=== PATIENT | female | born 1970 | race Caucasian/White ===

== ENCOUNTER → 2016-04-16 | Outpatient (CLI) | payer MEDICAID ==
--- NOTE | 2016-04-16 19:48 | DX ---
AP Standing and Lateral Scoliosis Series History: Scoliosis. Comparison: MRI lumbar spine September 11, 2015. Findings: There is 11 degree dextroscoliosis of the thoracic spine measured from the superior endpla te of T3 through the inferior endplate of T9. There is 38 degree levoscoliosis of the thoracolumbar spine measured from the superior endplate of T10 through the inferior endplate of L4. A jemima line i nferiorly from C7 is 13.3 cm to the right of the midline of the sacrum and 12.7 cm anterior to the po sterosuperior margin of S1. There is no significant leg-length discrepancy. Linear basilar scarring /atelectasis is present in the right lower lobe. Moderate stool is present in the colon. Impressions 1. S-shaped scoliosis of the thoracolumbar spine, with prominent levoscoliosis of the thoracolumbar junction. 2. Significant coronal and sagittal imbalance, as above. 3. Additional findings, as above.
== END ==
LOC: FIMAGING 12:31
PROVIDERS: ATTEND Family Medicine
DX: M41.85 Other forms of scoliosis, thoracolumbar region (principal); J98.4 Other disorders of lung

== ENCOUNTER 2016-11-26 14:21 | Emergency (ER) | payer MEDICAID ==
[2016-11-26 14:30] VITALS: RESP 16
--- NOTE | 2016-11-26 14:52 | EDPHY ---
H & P Stated Complaint: bilateral leg swelling, starting 3 days ago. Time Seen by Provider: 11/26/16 14:52 HPI/ROS: HPI: This is a 46-year-old female who presents with Chief Complaint: bilateral leg swelling, starting 3 days ago. Location: Bilateral lower legs Quality: Swelling Duration: 3 days Signs and Symptoms:+ redness, no shortness of breath, no pruritus, no calf pain , no injury, + warmth, no orthopnea, no chest pain Timing: Gradual onset Severity: [id number] Context: Patient complains of bilateral lower leg swelling and redness. She is currently wearing a left ankle bracelet since October 10. Several days after wearing on her right ankle she noticed right lower extremity swelling and redness. The ankle bracelet has since moved to her left ankle and now she complains of left lower extremity swelling and redness. She also notes right knee swelling. She denies any injury or trauma. She is ambulatory without deficits. She is currently under pain management. Modifying Factors: No [id number] medications have been tried. Comment: ROS: Constitutional: No fever, no chills, no weight loss Eyes: No blurred vision Respiratory: No shortness of breath, no cough Cardiovascular: No chest pain Gastrointestinal: No nausea, no vomiting no diarrhea Genitourinary: No dysuria Extremities: No myalgias Neurologic: No weakness, no numbness Skin: No rashes Hematologic: No bruising, no bleeding Source: Patient Exam Limitations: No limitations - Personal History LMP (Females 10-55): Post Menopausal Current Tetanus/Diphtheria Vaccine: Yes Current Tetanus Diphtheria and Acellular Pertussis (TDAP): Yes - Medical/Surgical History Hx Asthma: Yes Hx Chronic Respiratory Disease: No Hx Diabetes: No Hx Cardiac Disease: No Hx Renal Disease: No Hx Cirrhosis: No Hx Alcoholism: No Hx HIV/AIDS: No Hx Splenectomy or Spleen Trauma: No Other PMH: left knee surgery, 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 Tympanic membranes clear. Oropharynx clear, no exudate and moist pink mucosa. Airway patent. No lymphadenopathy. No meningismus. Cardiovascular: Normal S1/S2, regular rate, regular rhythm, without murmur rub or gallop. PULMONARY/CHEST: Symmetrical and nontender. Clear to auscultation bilaterally. Good air movement. No accessory muscle usage. ABDOMEN: Soft, nondistended, nontender, no rebound, no guarding, no peritoneal signs, no masses or organomegaly. No CVAT. EXTREMITIES: 2/2 pedal pulses, no deformities, no clubbing, no cyanosis. No calf tenderness. Mild erythema bilateral lower legs sparing her ankles and feet with trace bilateral pitting edema. Left ankle bracelet noted. Right knee mild effusion; no joint line tenderness; extension 180; flexion 120, stable to varus and valgus exam. Left knee completely normal exam. Bilateral ankle with full range of motion plantar flexion and dorsiflexion. NEUROLOGICAL: no focal neuro deficits. GCS 15. SKIN: Warm and dry, no erythema. no rash. Good capillary refill. Constitutional: Initial Vital Signs Heart Rate 83 11/26/16 14:27 Respiratory Rate 16 11/26/16 14:27 Blood Pressure 129/74 H 11/26/16 14:27 O2 Sat (%) 96 11/26/16 14:27 O2 Delivery Mode Room Air O2 (L/minute) 36.4 Allergies/Adverse Reactions: aspirin [Aspirin] Allergy (Verified 07/21/15 13:28) Penicillins Allergy (Verified 07/21/15 13:28) Home Medications: Medication Instructions Recorded FLUoxetine [Prozac] 40 mg PO DAILY 12/25/10 Gabapentin [Neurontin] 900 mg PO DAILY 12/25/10 oxyCODONE/APAP 5/325 [Percocet] 1 - 2 tab PO Q4-6PRN PRN #19 tab 11/13/11 Flexeril 07/21/15 Methadone HCl 07/21/15 predniSONE 40 mg PO DAILY #8 tab 07/21/15 Medical Decision Making - Diagnostics Imaging Results: Imaging Impressions Extremity Venous Study 11/26/16 14:56 Impression: 1. No evidence of DVT both lower extremities. 2. Bilateral popliteal cysts right side larger than left. Findings discussed with Brandi Anthony PAC at 15:37 hour, 11/26/2016. Knee X-Ray 11/26/16 14:56 Impression: Negative right knee radiographs. ED Course/Re-evaluation: Right knee x-ray and bilateral lower extremity ultrasound ordered No signs of hypoxia/congestive failure/respiratory failure 1540: Called by radiologist and ultrasound shows no bilateral DVTs; does show bilateral Juarez cysts, right larger than left. Right measuring 4.8 cm and left measuring 3.1 cm. Right knee x-ray my read shows no significant degenerative changes Advised rest, elevate, compression stockings, NSAIDs. Follow up with primary care provider and/or orthopedics if symptoms persist or worsen Differential Diagnosis: Leg swelling including but not limited to hypoalbuminemia, congestive heart failure, cor pulmonale, chronic venous stasis and DVT. Departure - Departure Disposition: Home, Routine, Self-Care Clinical Impression: Dependent edema Juarez's cyst of knee Qualifiers: Laterality: unspecified laterality Qualified Code(s): M71.20 - Synovial cyst of popliteal space [Juarez], unspecified knee Condition: Good Instructions: Bakers Cyst (ED), Leg Edema (ED) Additional Instructions: Rest affected extremity. Elevate legs and wear compression stockings to decrease swelling. Referrals: Ifeoma Branch MD [Primary Care Provider] - As per Instructions Augustin Hoskins MD [Medical Doctor] - Follow Up Only If Needed
[2016-11-26 16:12] VITALS: BP 138/92; PULSE 77; TEMP 98.1; O2SAT 97
== END 2016-11-26 16:15 | disposition home or self-care (01) ==
DX: M71.21 Synovial cyst of popliteal space [Baker], right knee (principal); M71.22 Synovial cyst of popliteal space [Baker], left knee; R60.0 Localized edema; J45.909 Unspecified asthma, uncomplicated; F17.200 Nicotine dependence, unspecified, uncomplicated

== ENCOUNTER 2016-12-25 14:58 | Emergency (ER) | payer MEDICAID ==
--- NOTE | 2016-12-25 15:47 | EDPHY ---
H & P Time Seen by Provider: 12/25/16 15:45 HPI/ROS: Chief complaint. Back pain HPI. 46-year-old female with 1 day history of left low back and left leg pain. It began yesterday. She denies injury. She normally walks with a cane due to chronic pain but it is hard to walk. She denies any trauma or unusual activity. She has had chronic back pain but not specifically similar symptoms before. She has no leg weakness. No bowel or bladder symptoms. No previous back surgery. No fever. No abdominal pain. ROS Constitutional. no fever/chills, no weakness Eyes. no problems with vision ENT. no sore throat, no nasal drainage Cardiovascular. no chest pain Respiratory. no shortness of breath, no cough Abdominal. no abdominal pain, no nausea/vomiting, no diarrhea . no problems urinating MS. left low back pain radiating to left leg Skin. no rash Lymph. no swollen glands Neuro. Difficulty walking secondary to pain Past Medical/Surgical History: Past medical history significant for brain injury, left knee surgery, chronic pain, cholecystectomy, scoliosis Social History: , daily smoker, no alcohol Smoking Status: Heavy smoker Physical Exam: General Appearance: Alert well-developed female mild distress vital signs significant for initial heart rate 116 Eyes: Pupils equal and round no pallor or injection. ENT, Mouth: Mucous membranes are moist. Respiratory: There are no retractions, lungs are clear to auscultation. Cardiovascular: Regular rate and rhythm. Gastrointestinal: Abdomen is soft and nontender, no masses, bowel sounds normal. Neurological: Awake and alert, sensory and motor exams grossly normal. Reflexes are symmetrical. Straight leg raising normal on both sides to 30 degrees. Patient tells me it feels better raising her left leg. Great toe strength is normal. Sensation is normal. Skin: Warm and dry, no rashes. Musculoskeletal: Neck is supple nontender. Tenderness to the left side of L2- 3 area. No tenderness over the lumbar spine. Extremities symmetrical, full range of motion. Psychiatric: Patient is oriented X 3, there is no agitation. Constitutional: Initial Vital Signs Temperature (C) 36.6 C 12/25/16 14:59 Heart Rate 116 H 12/25/16 14:59 Respiratory Rate 18 12/25/16 14:59 Blood Pressure 121/81 H 12/25/16 14:59 O2 Sat (%) 94 12/25/16 14:59 O2 Delivery Mode Room Air Allergies/Adverse Reactions: aspirin [Aspirin] Allergy (Verified 07/21/15 13:28) Penicillins Allergy (Verified 07/21/15 13:28) Home Medications: Medication Instructions Recorded FLUoxetine [Prozac] 40 mg PO DAILY 12/25/10 Gabapentin [Neurontin] 900 mg PO DAILY 12/25/10 oxyCODONE/APAP 5/325 [Percocet] 1 - 2 tab PO Q4-6PRN PRN #19 tab 11/13/11 Flexeril 07/21/15 Methadone HCl 07/21/15 predniSONE 40 mg PO DAILY #8 tab 07/21/15 CYCLOBENZAPRINE HCL [Flexeril] 5 mg PO TIDPRN PRN #10 tab 12/25/16 Lidocain/Me-Salicyl/Caps/Menth 1 each TP DAILY PRN #7 adh..patch 12/25/16 [Medi-Patch with Lidocaine] Medical Decision Making Procedures: Ibuprofen 600 mg, Flexeril 5 mg orally. Lidocaine patch ED Course/Re-evaluation: Re-evaluation at 6:15 p.m.. Patient is improved and stable. She is ambulatory. She and I discussed treatment plan including criteria for return importance of follow-up and further evaluation; she expresses understanding and agreement Differential Diagnosis: I considered cauda equina syndrome, HNP P. This is likely muscular in etiology - Data Points Medications Given: Miscellaneous Information (Patch Removal) 1 ea TD DAILY21 MANUEL Stop: 06/23/17 20:59 Last Admin: 12/25/16 16:35 Dose: Not Given Discontinued Medications Cyclobenzaprine HCl (Flexeril) 10 mg PO EDNOW ONE Stop: 12/25/16 16:01 Last Admin: 12/25/16 16:30 Dose: 10 mg Ibuprofen (Motrin) 600 mg PO EDNOW ONE Stop: 12/25/16 16:01 Last Admin: 12/25/16 16:31 Dose: 600 mg Lidocaine (Lidoderm 5%) 1 ea TD EDNOW ONE Stop: 12/25/16 16:01 Last Admin: 12/25/16 16:30 Dose: 1 ea Departure - Departure Disposition: Home, Routine, Self-Care Clinical Impression: Low back pain Qualifiers: Chronicity: acute Back pain laterality: left Sciatica presence: with sciatica Sciatica laterality: sciatica of left side Qualified Code(s): M54.42 - Lumbago with sciatica, left side Condition: Good Instructions: Acute Low Back Pain (ED) Additional Instructions: Ice to sore area next 24-48 hours and then apply heat. Easy activity. Ibuprofen 600 mg every 6 hours for discomfort. Flexeril as muscle relaxer. The lidocaine patches to further help with pain. Return for leg weakness, bowel or bladder symptoms. Recheck in 2-3 days if not improving Referrals: Ifeoma Branch MD [Primary Care Provider] - 2-3 days, if not improved Prescriptions: CYCLOBENZAPRINE HCL [Flexeril] 5 mg PO TIDPRN PRN #10 tab PRN Reason: Spasms Lidocain/Me-Salicyl/Caps/Menth [Medi-Patch with Lidocaine] 1 each TP DAILY PRN # 7 adh..patch PRN Reason: Pain, Moderate
[2016-12-25] MEDS ORDERED: CYCLOBENZAPRINE 10 MG TAB PO ONE (16:00)
[2016-12-25] MEDS ORDERED: LIDOCAINE 5% 1 EA PATCH TD ONE (16:00)
[2016-12-25] MEDS: IBUPROFEN 600 MG TAB PO ONE ×2 (16:30→16:31)
[2016-12-25 18:39] VITALS: BP 122/80; PULSE 81; RESP 16; TEMP 96.8; O2SAT 95
--- NOTE | 2016-12-25 18:41 | ASMTCMCOM ---
CM Note CM Note Notes: Spoke with patient about primary care follow-up and chronic pain. Patient states her PCP is Dr. Ifeoma scott/[facility] primary care clinics. Patient is also followed by PILY Morgan, and Daysi Pineda DC, for chronic pain management at [facility] in [place]. Patient is also followed at [facility] but she says she has difficulty getting appointments and is frustrated with lack of availability and access to appointments. Patient provided pamphlet on [facility] and will see if she is eligible for their services for further help. CM available for further assistance if needed. Date Signed: 12/25/2016 06:40 PM Electronically Signed By:Asha Lebron RN
[2016-12-25] MEDS ORDERED: PATCH REMOVAL 1 EA PATCH TD SCH (21:00)
== END 2016-12-25 18:39 | disposition home or self-care (01) ==
DX: M54.42 Lumbago with sciatica, left side (principal); F17.200 Nicotine dependence, unspecified, uncomplicated